=== PATIENT | female | born 1950 | race Caucasian/White ===

== ENCOUNTER 2024-04-07 10:01 | Emergency (ER) | payer MEDICARE, OTHER, SELFPAY ==
[2024-04-07 10:07] VITALS: BP 112/79; PULSE 86; TEMP 36.9; O2SAT 95; BMI 24.4
--- NOTE | 2024-04-07 10:11 | XR_ITS ---
The [address] [address] Patient Name: MELVIN WILLIAM MRN: [id number] date: 1950 Sex: F Assigned Patient Location: ER Current Patient Location: ED.MAIN Accession/Order Number: [id number] Exam Date: 04/07/2024 10:46 Report Date: 04/07/2024 11:23 At the request of: KATHLEEN MACIAS Procedure: XR knee RT 3V PROCEDURE: XR knee RT 3V COMPARISON: None. HISTORY: Right knee pain FINDINGS: BONES:No fracture, acute abnormality, or significant arthropathy. Minimal degenerative changes SOFT TISSUES:Negative. No visible soft tissue swelling. EFFUSION:None visible. OTHER: Negative. XR/XR knee RT 3V IMPRESSION: No acute radiographic abnormality Electronically authenticated by: CUONG MARINO Date: 04/07/2024 11:23
--- NOTE | 2024-04-07 10:12 | ED.GENADUL1 ---
HPI HPI - General Adult General Chief complaint: Extremity Injury, Lower Stated complaint: LOWER EXTREMITY INJURY Time Seen by Provider: 04/07/24 10:04 History of Present Illness HPI narrative: Patient presents ED complaining of right knee pain. She said her dog sideswiped her in the lateral knee and she fell yesterday. She did not have any other injury but she has had pain in the right knee with walking ever since. She reports the pain is diffuse and she has pain with any range of motion of the knee as well as weightbearing. She denies hip pain or back pain. No ankle pain. She does have a previous lower leg injury with titanium plate near her ankle in the past. Related Data Allergies Allergy/AdvReac Type Severity Reaction Status Date / Time No Known Drug Allergies Allergy Verified 04/07/24 10:07 Opioid HPI Opioid Management Most Recent Opioid Data: Last Pain Scale 10 04/07/24 10:18 Last JAN Pain Assessment 04/07/24 10:18 Review of Systems ROS Status of ROS 10 or more systems reviewed and unremarkable except as noted in history and below Exam Narrative Exam Narrative: General: alert, no acute distress Cardiovascular: regular rate and rhythm, normal peripheral perfusion. Respiratory: Lungs CTA, respirations non labored. Extremities: Mild diffuse generalized pain. Minimal medial swelling. Normal distal pulses and sensation tendon function intact Neurological: oriented x 4, LOC appropriate for age. Constitutional Vital Signs, click to edit/add: Last Vital Signs Temp 98.4 F 04/07/24 10:07 Pulse 86 04/07/24 10:07 Resp 20 04/07/24 10:07 BP 112/79 04/07/24 10:07 Pulse Ox 95 04/07/24 10:07 O2 Del Method Room Air 04/07/24 10:07 Course Vital Signs Vital signs: Vital Signs Temperature 98.4 F 04/07/24 10:07 Pulse Rate 86 04/07/24 10:07 Respiratory Rate 20 04/07/24 10:07 Blood Pressure 112/79 04/07/24 10:07 Pulse Oximetry 95 04/07/24 10:07 Oxygen Delivery Method Room Air 04/07/24 10:07 Temperature 98.4 F 04/07/24 10:07 Pulse Rate 86 04/07/24 10:07 Respiratory Rate 20 04/07/24 10:07 Blood Pressure 112/79 04/07/24 10:07 Pulse Oximetry 95 04/07/24 10:07 Oxygen Delivery Method Room Air 04/07/24 10:07 Medical Decision Making MDM Narrative Medical decision making narrative: Patient's x-ray is negative for acute fracture. Patient will be placed in an Moy wrap. Follow-up with orthopedic doctor. Differential Diagnosis Differential Diagnosis: Knee strain sprain fracture Medical Records Medical records reviewed: Yes I reviewed the patient's medical records Imaging Data knee xr: Radiologist's impression: ITS Impressions Knee X-Ray 04/07/24 10:11 IMPRESSION: No acute radiographic abnormality Electronically authenticated by: CUONG MARINO Date: 04/07/2024 11:23 Discharge Plan Discharge Stand Alone Forms: Portal Instructions Chief Complaint: Extremity Injury, Lower Clinical Impression: Knee sprain Patient Disposition: Home, Self-Care Time of Disposition Decision: 11:40 Condition: Good Mode of Transportation: Private Vehicle Print Language: Pashto Instructions: Knee Sprain (ED) Referrals: DUARTE RODRIGUEZ [Primary Care Provider] - 1 week ABHI MAHONEY [Physician] - 1 week Rajat Tobar MD [Physician] - 1 week
[2024-04-07] MEDS: IBUPROFEN 400 MG TABLET 800 MG PO (10:18)
[2024-04-07 12:51] VITALS: PULSE 75; O2SAT 96
== END 2024-04-07 12:53 | disposition home or self-care (01) ==
PROVIDERS: Emergency Provider Emergency Medicine; PCP Nurse Practitioner Family
DX: S83.91XA Sprain of unspecified site of right knee, initial encounter (principal); W19.XXXA Unspecified fall, initial encounter
CPT/HCPCS: 73562; 99283

== ENCOUNTER 2024-10-13 12:46 | Emergency (ER) | payer MEDICARE, OTHER, SELFPAY ==
[2024-10-13 12:51] VITALS: BP 170/90; PULSE 80; TEMP 36.6; O2SAT 94; BMI 24.8
--- NOTE | 2024-10-13 13:05 | XR_ITS ---
The [address] [address] Patient Name: MELVIN WILLIAM MRN: [id number] date: 1950 Sex: F Assigned Patient Location: ER Current Patient Location: ER Accession/Order Number: [id number] Exam Date: 10/13/2024 13:15 Report Date: 10/13/2024 13:49 At the request of: JENNIFER BRAN Procedure: XR shoulder RT min 2V PROCEDURE: XR shoulder RT min 2V COMPARISON: None. HISTORY: fall FINDINGS: BONES:No fracture, acute abnormality, or significant arthropathy. SOFT TISSUES:Negative. No visible soft tissue swelling. EFFUSION:None visible. OTHER: Negative. XR/XR shoulder RT min 2V IMPRESSION: No acute fracture Electronically authenticated by: CUONG MARINO Date: 10/13/2024 13:49
--- NOTE | 2024-10-13 13:05 | XR_ITS ---
The [address] [address] Patient Name: MELVIN WILLIAM MRN: [id number] date: 1950 Sex: F Assigned Patient Location: ER Current Patient Location: ER Accession/Order Number: [id number] Exam Date: 10/13/2024 13:15 Report Date: 10/13/2024 13:48 At the request of: JENNIFER BRAN Procedure: XR knee RT 3V PROCEDURE: XR knee RT 3V COMPARISON: 04/07/2024 HISTORY: fall FINDINGS: BONES:No fracture, acute abnormality, or significant arthropathy. SOFT TISSUES:Negative. No visible soft tissue swelling. EFFUSION:None visible. OTHER: Negative. XR/XR knee RT 3V IMPRESSION: No acute radiographic abnormality Electronically authenticated by: CUONG MARINO Date: 10/13/2024 13:48
--- NOTE | 2024-10-13 13:05 | XR_ITS ---
The [address] [address] Patient Name: MELVIN WILLIAM MRN: [id number] date: 1950 Sex: F Assigned Patient Location: ER Current Patient Location: ER Accession/Order Number: [id number] Exam Date: 10/13/2024 13:15 Report Date: 10/13/2024 13:51 At the request of: JENNIFER BRAN Procedure: XR ribs RT min 3V w CXR1V EXAMINATION: XR ribs RT min 3V w CXR1V HISTORY: fall COMPARISON: No relevant comparison available. FINDINGS: LUNGS: No significant pulmonary parenchymal abnormalities. PLEURA: No pneumothorax, effusion, or pleural thickening. MEDIASTINUM: No visible mass or adenopathy. CARDIAC: No cardiomegaly or cardiac silhouette abnormality. 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
--- NOTE | 2024-10-13 13:08 | ED_ITS ---
HPI HPI - General Adult General Chief complaint: Extremity Injury, Upper Stated complaint: UPPER EXTREMITY INJURY/FALL Time Seen by Provider: 10/13/24 13:01 Source: patient Mode of arrival: walk-in Limitations: no limitations History of Present Illness HPI narrative: Patient presented to the emergency department for evaluation of arm pain status post trip and fall. Patient states that her dog escaped, she would not go get it, tripped over the sidewalk. Landed on the right side of her body. States since that time she has been having pain of the right shoulder, right ribs. Whenever she moves the arm she has pain. Patient has no difficulty breathing, no shortness of breath, did not hit her head, no loss of consciousness. Has no blurry vision, double vision, headaches, nausea or vomiting. No other complaints at this time Related Data Home Medications ?Medication ?Instructions ?Recorded ?Confirmed allopurinol 100 mg tablet 100 mg PO BID 10/13/24 10/13/24 ezetimibe 10 mg tablet 10 mg PO DAILY 10/13/24 10/13/24 famotidine 20 mg tablet 20 mg PO BID 10/13/24 10/13/24 gabapentin 300 mg capsule 600 mg PO Q12H 10/13/24 10/13/24 lisinopril 10 mg tablet 10 mg PO DAILY 10/13/24 10/13/24 metoprolol succinate 50 mg 50 mg PO BEDTIME 10/13/24 10/13/24 tablet,extended release 24 hr oxybutynin chloride 10 mg 10 mg PO DAILY 10/13/24 10/13/24 tablet,extended release 24 hr Allergies Allergy/AdvReac Type Severity Reaction Status Date / Time No Known Drug Allergies Allergy Verified 10/13/24 12:58 Opioid HPI Opioid Management Most Recent Opioid Data: Last Pain Scale 8 10/13/24 13:40 10/13/24 Last MAR Pain Assessment 10/13/24 13:40 Review of Systems ROS Narrative Negative unless otherwise stated in the HPI PFSH PFSH Social History Little interest or pleasure in doing things: not at all Feeling down, depressed, or hopeless: not at all Exam Narrative Exam Narrative: General: NAD, AAOx3, no distress HEENT: NCAT, no hematomas, bruising, tenderness Neck: Supple, no tenderness Respiratory: respiratory effort normal, speaks in full sentences, no tripod position, no accessory muscle use. Lungs clear to auscultation without rhonchi, wheezes, rales, right ribs midaxillary line tenderness, rib Cardiac: Regular rate and rhythm, no edema, regular s1/s2, no m/g/r Ext: Right sh shoulder decreased range of motion secondary to pain, pain with passive as well as active range of motion, no gross deformities, normal flexion and extension, decreased abduction past 90 degrees with active or passive range of motion, normal distal neurovascular status Constitutional Vital Signs, click to edit/add: Last Vital Signs Temp 97.9 F 10/13/24 12:51 Pulse 80 10/13/24 12:51 Resp 20 10/13/24 12:51 BP 170/90 H 10/13/24 12:51 Pulse Ox 94 L 10/13/24 12:51 O2 Del Method Room Air 10/13/24 12:51 Course Vital Signs Vital signs: Vital Signs Temperature 97.9 F 10/13/24 12:51 Pulse Rate 80 10/13/24 12:51 Respiratory Rate 20 10/13/24 12:51 Blood Pressure 170/90 H 10/13/24 12:51 Pulse Oximetry 94 L 10/13/24 12:51 Oxygen Delivery Method Room Air 10/13/24 12:51 Temperature 97.9 F 10/13/24 12:51 Pulse Rate 80 10/13/24 12:51 Respiratory Rate 20 10/13/24 12:51 Blood Pressure 170/90 H 10/13/24 12:51 Pulse Oximetry 94 L 10/13/24 12:51 Oxygen Delivery Method Room Air 10/13/24 12:[address] [facility] Narrative Medical decision making narrative: [facility] Patient with history as above presented with pain status post fall. History obtained from patient. Patient was nontoxic, stable. Ambulatory. Exam as above. Independently reviewed imaging. Reviewed external records. Differential diagnosis considered. Overall presentation is consistent with shoulder sprain, potential for rotator cuff, ligamentous or tendinous injury. Advanced guidance has been given. Vss, pex is benign at this time. Pt to fu with pcp 1-2 days for reeval, rter should sx worsen, persist or become worrysome in any way. All incidental laboratory studies, EKG, radiologic findings have been noted and discussed with patient. Patient was reevaluated with a benign exam at this time. Pt expressed understanding and agreement with plan of care at this time. Will fu as planned. Pt stable for discharge. Discharge Plan Discharge Chief Complaint: Extremity Injury, Upper Clinical Impression: Fall, Shoulder contusion Patient Disposition: Home, Self-Care Time of Disposition Decision: 14:05 Condition: Good Prescriptions / Home Meds: No Action allopurinol 100 mg tablet 100 mg PO BID ezetimibe 10 mg tablet 10 mg PO DAILY famotidine 20 mg tablet 20 mg PO BID gabapentin 300 mg capsule 600 mg PO Q12H lisinopril 10 mg tablet 10 mg PO DAILY metoprolol succinate 50 mg tablet extended release 24 hr 50 mg PO BEDTIME oxybutynin chloride 10 mg tablet extended release 24hr 10 mg PO DAILY Print Language: [place] Instructions: Contusion in Adults (ED), Fall Prevention (ED) Additional Instructions: Follow-up with your PCP in the next 1 to 2 days. Return to the emergency department should symptoms worsen or become worrisome in any way. Referrals: DUARTE RODRIGUEZ [Primary Care Provider] - 1 week
[2024-10-13] MEDS: KETOROLAC TROMETHAMINE 30 MG/ML VIAL 15 MG IM (13:40)
== END 2024-10-13 14:27 | disposition home or self-care (01) ==
PROVIDERS: Emergency Provider Emergency Medicine; PCP Nurse Practitioner Family
DX: S40.011A Contusion of right shoulder, initial encounter (principal); W01.0XXA Fall on same level from slipping, tripping and stumbling without subsequent striking against object, initial encounter
CPT/HCPCS: 71101; 73030; 73562; 96372; 99284; J1885